=== PATIENT | male | born 1960 | race Caucasian/White ===

== ENCOUNTER 2018-05-11 20:04 | Emergency (ER) | payer BC ==
[~2018-05-11] VITALS: Ht 175.3 cm; Wt 71.0 kg
[2018-05-11] MEDS ORDERED: normal saline 1000ML IV soln IVB ONE (20:55)
[2018-05-11] MEDS ORDERED: proCHLORperazine 10 MG/2 ml inj IV ONE (20:55)
[2018-05-11] MEDS ORDERED: morphine 4 MG/ML inj SYRINge IV ONE (20:55)
[2018-05-11 21:07] LABS: BASOPHILS % (AUTO) 0.2 % (0-1); EOSINOPHILS % (AUTO) 0.7 % (0-6); HEMATOCRIT 32.2 % (42.0-52.0); HEMOGLOBIN 11.2 g/dl (14.0-17.9); LYMPHOCYTES # (AUTO) 0.3 X10'3 (1.1-4.8); LYMPHOCYTES % (AUTO) 11.5 % (21-51); MEAN CORPUSCULAR HEMOGLOBIN 29.5 PG (27.0-31.0); MEAN CORPUSCULAR HGB CONC 34.6 % (33.0-36.5); MONOCYTES # (AUTO) 0.3 X10'3 (0-0.9); MONOCYTES % (AUTO) 11.1 % (2-12); NEUTROPHILS # (AUTO) 1.9 X10'3 (1.8-7.7); NEUTROPHILS % (AUTO) 76.5 % (42-75); PLATELET COUNT 63 X10'3 (140-440); RED BLOOD COUNT 3.79 X10'6 (4.70-6.10); RED CELL DISTRIBUTION WIDTH 14.6 % (11.5-14.5); WHITE BLOOD COUNT 2.4 X10'3 (4.5-11.0)
[2018-05-11] MEDS: morphine 4 MG/ML inj SYRINge IV PRN ×2 (21:10→21:34)
[2018-05-11 21:16] LABS: ALANINE AMINOTRANSFERASE 32 U/L (12-78); ALBUMIN/GLOBULIN RATIO 0.7 (1.1-1.5); ALKALINE PHOSPHATASE 298 IU/L (46-116); ANION GAP 9 (8-16); ASPARTATE AMINO TRANSFERASE 108 U/L (10-37); BILIRUBIN,TOTAL 0.4 MG/DL (0.1-1.0); BLOOD UREA NITROGEN 12 MG/DL (7-18); BUN/CREATININE RATIO 16.2 (5.4-32.0); CHLORIDE 100 MMOL/L (99-107); CREATININE 0.74 MG/DL (0.60-1.10); GLUCOSE 104 MG/DL (70-104); MAGNESIUM 2.2 MG/DL (1.5-2.4); POTASSIUM 3.4 MMOL/L (3.5-5.1); SODIUM 137 MMOL/L (135-145); TOTAL CARBON DIOXIDE 28.2 MMOL/L (24-32); TOTAL PROTEIN 7.2 G/DL (6.4-8.2); eGFR > 90 ML/MIN
[2018-05-11] MEDS ORDERED: SUMAtriptan succ. 6 MG/0.5ml vial SQ ONE (21:55)
[2018-05-11] MEDS ORDERED: meperidine/PF 50mg/ml syringe IV ONE ×2 (21:55→22:50)
[2018-05-11] MEDS ORDERED: fentaNYL/PF 50MCG/1 ML 2ML syringe IV ONE ×2 (22:50→23:50)
[2018-05-11 23:55] LABS: PLATELET ESTIMATE DECREASED; TOTAL CELLS COUNTED 100
[2018-05-12] MEDS ORDERED: ketamine 10mg/ml 20ml inj 0 MG in normal saline 100ml IV soln 100 ML IV ONE ×4 (00:05)
[2018-05-12] MEDS ORDERED: ketorolac tromethamine 15mg/ml inj. IV ONE (00:05)
[2018-05-12] MEDS ORDERED: haloperidol 1mg tablet PO ONE (00:10)
[2018-05-12] MEDS ORDERED: dexamethasone sod phosphate 10mg/ml inj IV STA (00:22)
[2018-05-12] MEDS ORDERED: haloperidol lactate 5mg/ml inj IM ONE (00:25)
[2018-05-12] MEDS ORDERED: NORMAL SALINE IV ONE (00:40)
[2018-05-12] MEDS ORDERED: KETAMINE IV ONE (00:40)
[2018-05-12] MEDS: magnesium 1gm/100ml D5W IVPB 100 ML IV SCH ×2 (00:43→01:01)
[2018-05-12 01:39] VITALS: BP 153/70
== END 2018-05-12 01:40 | disposition home or self-care (01) ==
LOC: ER 20:05
DX: G43.909 Migraine, unspecified, not intractable, without status migrainosus (principal); C61 Malignant neoplasm of prostate; C79.89 Secondary malignant neoplasm of other specified sites; R11.2 Nausea with vomiting, unspecified; Z88.8 Allergy status to other drugs, medicaments and biological substances
CPT/HCPCS: 36415; 80053; 83735; 85025; 96361; 96365; 96368; 96372; 96375; 96376; 99284; J0780; J1100; J1630; J1885; J2175; J2270; J3010; J3030; J7030